=== PATIENT | male | born 1965 | race American Indian/Alaskan Native ===

== ENCOUNTER 2017-04-02 07:26 | Emergency (ER) | payer SELFPAY ==
--- NOTE | 2017-04-02 12:45 | Emergency Department Report ---
Vomiting/Diarrhea - HPI Chief Complaint: Nausea/Vomiting/Diarrhea Stated Complaint: FLU LIKE SYMPTOMS Time Seen by Provider: 04/02/17 12:42 Duration: 2 weeks Severity: mild Nausea/Vomiting Severity: Moderate Diarrhea Severity: Mild Pain Severity: None Symptoms: Yes Watery Diarrhea, Yes Fever, Yes Recent URI Symptoms (diagnosed with influenza last week at the [facility]), No Bloody diarrhea, No Able to Tolerate Fluids, No Recent Unusual Foods, No Recent Untreated Water, No Recent use of Antibiotics, No Family w/ Similar Symptoms, No Contacts w/ Similar Symptoms, No Rash, No Hematuria Other History: This is a 51 y.o. male presents with nausea and vomiting for 2 weeks. He was diagnosed with the flu last at the [facility]. He was given tylenol and ibuprofen and advised to treat symptoms. Patient reports not able to tolerate liquids or solids for 3 days. The diarrhea has subsided but he can't tolerate anything orally. ED Review of Systems ROS: Stated complaint: FLU LIKE SYMPTOMS Other details as noted in HPI Constitutional: chills, fever, malaise. denies: diaphoresis, weakness ENT: congestion. denies: ear pain, throat pain, dental pain, hearing loss, epistaxis Respiratory: cough. denies: orthopnea, shortness of breath, SOB with exertion, SOB at rest, stridor, wheezing Cardiovascular: denies: chest pain, palpitations Gastrointestinal: nausea, vomiting. denies: abdominal pain, diarrhea, constipation, hematemesis, melena, hematochezia Neurological: denies: headache, weakness, paresthesias ED Past Medical Hx - Past Medical History Previous Medical History?: No - Surgical History Past Surgical History?: No - Social History Smoking Status: Never Smoker Substance Use Type: Alcohol - Medications Home Medications: Home Medications Medication Instructions Recorded Confirmed Last Taken Type Ondansetron [Zofran TAB] 4 mg PO Q8HR PRN #10 tablet 04/02/17 Unknown Rx Sulfamethoxazole/Trimethoprim 1 each PO BID 10 Days #20 tablet 04/02/17 Unknown Rx [Bactrim DS TAB] Vomiting Diarrhea Exam - Exam General: Vital signs noted. No distress. Alert and acting appropriately. HEENT: Yes Pharyngeal Erythema, Yes Moist Mucous Membranes, Yes Rhinorrhea, No Pharyngeal Exudates, No Conjuctival Injection, No Frontal Tenderness, No Maxillary Tenderness Neck: No Adenopathy, No Rigidity Lungs: Yes Clear Lung Sounds, Yes Good Air Exchange, Yes Cough, No Wheezes, No Stridor, No Nasal Flaring, No Retractions, No Use of Accessory Muscles Heart exam: Regular: Yes, Murmur: No, Tachycardia: No Abdomen: Tenderness: No, Peritoneal Signs: No, Distention: No, Hyperactive Bowel sounds: No Skin exam: Rash: No, Edema: No, Normal turgor: Yes Neurologic: Alert and oriented, no deficits. Musculoskeletal: Unremarkable. ED Course Vital Signs 04/02/17 08:20 Temperature 98.2 F Pulse Rate 95 H Respiratory 16 Rate Blood Pressure 122/87 O2 Sat by Pulse 99 Oximetry ED Medical Decision Making - Lab Data Result diagrams: 04/02/17 13:57 04/02/17 13:57 - Medical Decision Making This is a 51 y.o. male presents with N/V/D, congestion, body aches, and cough for 2 weeks. He was diagnosed with influenza at the [facility] 2 weeks ago. He was given tylenol and ibuprofen and encouraged to treat symptoms. Patient states symptoms got worse 3 days ago. He has not been able to hold fluids and solids down. He is taking ibuprofen with no improvement. BMP & CBC ordered, WBC elevated. Given zofran 4 mg po once in ER. Given bactrim DS po once in ER. Gastroenteritis, start bactrim 500 mg po bid x 7 days Instructed to f/u with PCP in 48 hours or sooner if symptoms are worse. Critical care attestation.: If time is entered above; I have spent that time in minutes in the direct care of this critically ill patient, excluding procedure time. ED Disposition Clinical Impression: Gastroenteritis URI (upper respiratory infection) Qualifiers: URI type: acute nasopharyngitis (common cold) Qualified Code(s): J00 - Acute nasopharyngitis [common cold] Disposition: -01 TO HOME OR SELFCARE Is pt being admited?: No Does the pt Need Aspirin: No Condition: Stable Instructions: Gastroenteritis (ED), Acute Nausea and Vomiting (ED), Upper Respiratory Infection (ED) Additional Instructions: Increase clear fluid intake. Wash hands frequently. Take medication as prescribed. Follow up with Primary Care Provider if nausea, vomiting, abdominal pain, fever , and diarrhea is worse. Prescriptions: Ondansetron [Zofran TAB] 4 mg PO Q8HR PRN #10 tablet PRN Reason: Nausea Sulfamethoxazole/Trimethoprim [Bactrim DS TAB] 1 each PO BID 10 Days #20 tablet Referrals: [facility] [Outside] - 3-5 Days [facility] [Outside] - 3-5 Days [facility] [Outside] - 3-5 Days Forms: Work/School Release Form(ED) Time of Disposition: 16:06 Print Language: DJIBOUTIAN
[2017-04-02] MEDS ORDERED: ZOFRAN ODT PO ONE (14:04)
[2017-04-02 14:21] LABS: Hematocrit 43.4 % (35.5-45.6); Hemoglobin 14.4 gm/dl (11.8-15.2); Mean Corpuscular HGB Conc 33 % (32-34); Mean Corpuscular Hemoglobin 30 pg (28-32); Mean Corpuscular Volume 91 fl (84-94); Platelet Count 302 K/mm3 (140-440); Red Blood Count 4.75 M/mm3 (3.65-5.03); Red Cell Distribution Width 13.8 % (13.2-15.2)
[2017-04-02 14:43] LABS: BUN/Creatinine Ratio 16; Blood Urea Nitrogen 21 mg/dL (9-20); Calcium 9.2 mg/dL (8.4-10.2); Hemolysis Index 4
[2017-04-02 15:13] LABS: Total Cells Counted 100
[2017-04-02 15:14] LABS: Band Neutrophils # (Manual) 3.1 K/mm3; Basophils % (Manual) 0 % (0.0-1.8); Eosinophils % (Manual) 0 % (0.0-4.3)
[2017-04-02 15:15] LABS: Anisocytosis Few
[2017-04-02] MEDS ORDERED: BACTRIM DS PO ONE (16:13)
[2017-04-02 16:19] VITALS: BP 107/73
== END 2017-04-02 16:36 | disposition home or self-care (01) ==
LOC: ED 07:26
DX: K52.9 Noninfective gastroenteritis and colitis, unspecified (principal); J00 Acute nasopharyngitis [common cold]
CPT/HCPCS: 36415; 80048; 85007; 85025; 99283; Q0162